=== PATIENT | male | born 1975 | race Caucasian/White ===

== ENCOUNTER 2019-01-21 19:10 | Emergency (ER) | payer BC ==
[~2019-01-21] VITALS: Ht 180.3 cm; Wt 118.2 kg
[~2019-01-21 19:10] MED LIST: AMOXICILLIN500 MG PO; ATROVENT NAS0.03 %; AUGMENTIN875TAB PO; CIPRODEX1 ML AU; CIPROFLOXACN500 MG PO; CORTISPORIN OTI10 ML AD; INDERAL 40MG TA40 MG OR; LISINOP/HCTZ1 TAB PO; LORTAB 5 OR; LOSARTAN POT50 MG PO; METOPROL TAR50 MG PO; NAPROSYN500 MG OR; NAPROSYN500 MG PO; ONDANSETRON4 MG PO; PREDNISONE20 MG PO; PROPRANOLOL HCL40 MG OR; TOBRAMYCIN0.3 % OU; ULTRAM50 M1 PO; ZITHROMAX250 MG PO
[2019-01-21] MEDS ORDERED: WELLBUTRIN SR150 MG PO (19:29)
[2019-01-21] MEDS ORDERED: INDERAL 40MG TA40 MG PO (19:30)
[2019-01-21 20:00] LABS: HEMATOCRIT 46.3 % (39.0-50.0); HEMOGLOBIN 15.5 g/dl (14.0-18.0); IMMATURE GRANULOCYTES 0.3 % (0.0-5.0); MEAN CELL VOLUME 91.5 fL CALC (80.0-100.0); MEAN CORPUSCULAR HGB 30.6 pG CALC (26.0-32.0); MEAN CORPUSCULAR HGB CONC 33.5 g/L CALC (32.0-36.0); NEUT# 7.27 thou/uL (1.82-7.42); RED BLOOD COUNT 5.06 mill/uL (4.70-6.10)
[2019-01-21 20:28] LABS: ALBUMIN 4.3 g/dL (3.2-5.0); ALKALINE PHOSPHATASE 85 u/l (38-126); AMYLASE 40 u/l (30-110); ANION GAP 11 (6-22 (CALC)); BILIRUBIN, TOTAL 0.7 mg/dL (0.0-1.4); BUN 12 mg/dL (9-20); BUN/CREATININE RATIO 11 (12-20 (CALC)); CHLORIDE 107 mmol/l (95-108); CREATININE 1.1 mg/dL (0.7-1.3); GFR > 60 ML/MIN (>=60 (CALC)); GFR FOR AFR.AMER. > 60 ML/MIN (>=60 (CALC)); LIPASE 53 u/l (23-300); POTASSIUM 3.9 mmol/l (3.5-5.1); SGOT/AST 29 u/l (17-59); SODIUM 143 mmol/l (137-146); TOTAL PROTEIN 7.2 g/dL (6.3-8.2)
[2019-01-21 20:29] LABS: CARBON DIOXIDE 29 mmol/l (22-30)
[2019-01-21 21:32] LABS: URINE BILIRUBIN - DIPSTICK NEGATIVE (NEGATIVE); URINE BLOOD DIPSTICK NEGATIVE (NEGATIVE); URINE COLOR YELLOW; URINE GLUCOSE - DIPSTICK NEGATIVE (NEGATIVE); URINE KETONE NEGATIVE (NEGATIVE); URINE LEUK ESTERASE NEGATIVE (NEGATIVE); URINE NITRITE - DIPSTICK NEGATIVE (Negative); URINE PROTEIN - DIPSTICK NEGATIVE (NEG-TRACE); URINE SPECIFIC GRAVITY >=1.030; URINE UROBILINOGEN - DIPSTICK 0.2 E.U./dL (0.2)
[2019-01-21] MEDS ORDERED: PROTONIX40 MG PO (21:57)
[2019-01-21 22:19] VITALS: BP 125/77
== END 2019-01-21 22:20 | disposition home or self-care (01) | DRG 392 ==
LOC: ED 19:10
PROVIDERS: Family Medicine
DX: K29.70 Gastritis, unspecified, without bleeding (principal); R91.1 Solitary pulmonary nodule; I10 Essential (primary) hypertension; F17.210 Nicotine dependence, cigarettes, uncomplicated
CPT/HCPCS: S0164

== ENCOUNTER 2021-01-13 06:06 | Emergency (ER) | payer BC ==
[~2021-01-13] VITALS: Ht 180.3 cm; Wt 124.5 kg
[~2021-01-13 06:06] MED LIST changes: +INDERAL 40MG TA40 MG PO; +PROTONIX40 MG PO; +WELLBUTRIN SR150 MG PO
[2021-01-13] MEDS ORDERED: LOSARTAN POTASS25 MG PO (07:23)
[2021-01-13 08:20] LABS: HEMATOCRIT 49.2 % (39.0-50.0); HEMOGLOBIN 16.1 g/dl (14.0-18.0); IMMATURE GRANULOCYTES 0.1 % (0.0-5.0); MEAN CELL VOLUME 93.7 fL CALC (80.0-100.0); MEAN CORPUSCULAR HGB 30.7 pG CALC (26.0-32.0); MEAN CORPUSCULAR HGB CONC 32.7 g/dL CAL (32.0-36.0); NEUT# 6.96 thou/uL (1.82-7.42); RED BLOOD COUNT 5.25 mill/uL (4.70-6.10); RED CELL DISTRI WIDTH 12.7 % (11.5-15.5)
[2021-01-13 08:35] LABS: ALBUMIN 4.4 g/dL (3.2-5.0); ALKALINE PHOSPHATASE 84 u/l (38-126); ANION GAP 9 (6-22 (CALC)); BILIRUBIN, TOTAL 0.9 mg/dL (0.0-1.4); BUN 15 mg/dL (9-20); BUN/CREATININE RATIO 13 (12-20 (CALC)); CARBON DIOXIDE 30 mmol/l (22-30); CHLORIDE 103 mmol/l (95-108); CREATININE 1.1 mg/dL (0.7-1.3); GFR > 60 ML/MIN (>=60 (CALC)); GFR FOR AFR.AMER. > 60 ML/MIN (>=60 (CALC)); LIPASE 46 u/l (23-300); POTASSIUM 4.4 mmol/l (3.5-5.1); SGOT/AST 33 u/l (17-59); SODIUM 138 mmol/l (137-146); TOTAL PROTEIN 7.5 g/dL (6.3-8.2)
[2021-01-13] MEDS ORDERED: METRONIDAZOL500 MG PO (10:01)
[2021-01-13] MEDS ORDERED: ONDANSETRON4 MG PO (10:01)
[2021-01-13] MEDS ORDERED: CIPROFLOXACN500 MG PO (10:01)
[2021-01-13 10:10] VITALS: BP 125/68
== END 2021-01-13 10:10 | disposition left against medical advice (07) | DRG 446 ==
LOC: ED 06:06 → ED-I 09:11 → ED 10:10
PROVIDERS: Family Medicine
DX: K80.00 Calculus of gallbladder with acute cholecystitis without obstruction (principal); I10 Essential (primary) hypertension; E66.9 Obesity, unspecified; F17.210 Nicotine dependence, cigarettes, uncomplicated; Z91.19 Patient's noncompliance with other medical treatment and regimen

== ENCOUNTER 2021-01-29 09:35 | Emergency (ER) | payer BC ==
[~2021-01-29] VITALS: Ht 180.3 cm; Wt 95.0 kg
[~2021-01-29 09:35] MED LIST changes: +LOSARTAN POTASS25 MG PO; +METRONIDAZOL500 MG PO
[2021-01-29 10:28] LABS: HEMATOCRIT 47.4 % (39.0-50.0); HEMOGLOBIN 15.8 g/dl (14.0-18.0); IMMATURE GRANULOCYTES 0.2 % (0.0-5.0); MEAN CELL VOLUME 91.5 fL CALC (80.0-100.0); MEAN CORPUSCULAR HGB 30.5 pG CALC (26.0-32.0); MEAN CORPUSCULAR HGB CONC 33.3 g/dL CAL (32.0-36.0); NEUT# 6.76 thou/uL (1.82-7.42); RED BLOOD COUNT 5.18 mill/uL (4.70-6.10); RED CELL DISTRI WIDTH 12.8 % (11.5-15.5)
[2021-01-29 10:47] LABS: ALBUMIN 4.4 g/dL (3.2-5.0); ANION GAP 12 (6-22 (CALC)); BUN 16 mg/dL (9-20); BUN/CREATININE RATIO 13 (12-20 (CALC)); CARBON DIOXIDE 27 mmol/l (22-30); CHLORIDE 105 mmol/l (95-108); CREATININE 1.2 mg/dL (0.7-1.3); GFR > 60 ML/MIN (>=60 (CALC)); GFR FOR AFR.AMER. > 60 ML/MIN (>=60 (CALC)); POTASSIUM 3.8 mmol/l (3.5-5.1); SODIUM 140 mmol/l (137-146); TOTAL PROTEIN 7.7 g/dL (6.3-8.2)
[2021-01-29 10:49] LABS: ALKALINE PHOSPHATASE 186 u/l (38-126); BILIRUBIN, TOTAL 4.6 mg/dL (0.0-1.4); SGOT/AST 363 u/l (17-59)
[2021-01-29 15:01] VITALS: BP 139/75
== END 2021-01-29 15:01 | disposition short-term general hospital (02) | DRG 446 ==
LOC: ED 09:35
PROVIDERS: Family Medicine
DX: K81.0 Acute cholecystitis (principal); E80.6 Other disorders of bilirubin metabolism; R74.01 Elevation of levels of liver transaminase levels; I10 Essential (primary) hypertension; E66.9 Obesity, unspecified; F17.200 Nicotine dependence, unspecified, uncomplicated; Z20.822 Contact with and (suspected) exposure to COVID-19